=== PATIENT | male | born 1960 | race Caucasian/White ===

== ENCOUNTER → 2022-07-10 | Outpatient (CLI) | payer OTHER, SELFPAY ==
--- NOTE | 2022-07-10 10:25 | ECHOD_ITS ---
Reason For Study: ABN EKG Procedure This was a 2D Doppler, Color Flow transthoracic echocardiogram. Exam performed in department. Left Ventricle Normal LV size. Apical false tendon noted. Left ventricular systolic function is normal. The estimated ejection fraction is 65 %. No evidence for diastolic dysfunction. No regional wall motion abnormalities noted. Right Ventricle Normal RV size. Normal systolic function. Atria Normal left atrium. Normal right atrium. No doppler evidence for ASD. Mitral Valve There is no mitral annular calcification. Normal mitral valve. Trivial mitral valve insufficiency. Tricuspid Valve Normal tricuspid valve. Trivial tricuspid valve insufficiency. Right ventricular systolic pressure estimated to be 30 mmHg. Aortic Valve Trisinus/trileaflet aortic valve. Normal aortic valve. Pulmonic Valve The pulmonic valve is not well visualized. Great Vessels Normal sized aortic root. Pericardium/Pleural No pericardial effusion. MMode/2D Measurements & Calculations LVIDd: 4.5 cm IVSd: 0.98 cm Ao root diam: 3.6 cm LVIDs: 3.4 cm LVPWd: 1.0 cm FS: 24.8 % LAV(MOD-bp): 51.5 ml LVAd ap4: 28.1 cm2 SV(MOD-sp4): 46.1 ml LAV(MOD-bp) Indexed: 26.1 ml/m2 LVLd ap4: 8.2 cm LAV(MOD-sp2): 65.4 ml EDV(MOD-sp4): 79.6 ml LAV(MOD-sp4): 41.2 ml EDV(sp4-el): 81.0 ml LVAs ap4: 16.2 cm2 LVLs ap4: 6.9 cm ESV(MOD-sp4): 33.5 ml ESV(sp4-el): 32.2 ml EF(MOD-sp4): 57.9 % EF(sp4-el): 60.2 % SV(sp4-el): 48.8 ml LA A4 area: 16.7 cm2 LA dimension(2D): 3.8 cm RA A4 area: 20.0 cm2 Time Measurements MV dec time: 0.17 sec Doppler Measurements & Calculations MV E max zheng: 62.4 cm/sec Lat Peak E' Zheng: 15.0 cm/sec Med Peak E' Zheng: 8.4 cm/sec MV A max zheng: 60.0 cm/sec E/E' lat: 4.2 E/E' med: 7.4 MV E/A: 1.0 MV V2 max: 81.1 cm/sec Ao V2 max: 143.0 cm/sec MV max P.6 mmHg MV dec slope: 361.5 cm/sec2 Ao max P.2 mmHg MV V2 mean: 45.9 cm/sec Ao V2 mean: 99.2 cm/sec MV mean P.97 mmHg Ao mean P.5 mmHg MV V2 VTI: 35.5 cm Ao V2 VTI: 32.2 cm AV (velocity ratio): 0.68 LV V1 max: 95.6 cm/sec PA V2 max: 124.1 cm/sec TR max zheng: 261.5 cm/sec LV V1 max P.7 mmHg PA V2 mean: 72.8 cm/sec TR max P.3 mmHg LV V1 mean P.0 mmHg LV V1 mean: 66.6 cm/sec LV V1 VTI: 21.9 cm ECHO/Echo Complete Interpretation Summary Left ventricular systolic function is normal. The estimated ejection fraction is 65 %. Apical false tendon noted. Trivial mitral valve insufficiency. Trivial tricuspid valve insufficiency. Right ventricular systolic pressure estimated to be 30 mmHg. No evidence for diastolic dysfunction. Ordering Physician: KENYATTA RODRIGUEZ Referring Physician: NO PCP Performed By: Karis Carr RCS
--- NOTE | 2022-07-10 10:39 | EKG12_ITS ---
Test Reason : AFIB Blood Pressure : / mmHG Vent. Rate : 059 BPM Atrial Rate : 059 BPM P-R Int : 172 ms QRS Dur : 084 ms QT Int : 410 ms P-R-T Axes : 051 -08 005 degrees QTc Int : 405 ms Sinus bradycardia Otherwise normal ECG Confirmed by CLARKE WYATT, KAM ([id number]), videotape editor TUNDE CARRANZA ([id number]) on 07/11/2022 10:27:12 AM Referred By: KARLA Confirmed By:KAM MIR MD
[2022-07-10 12:29] LABS: Color, Urine Yellow (Yellow); Glucose, Dipstick Normal (Normal); Ketone-Dipstick Negative (Negative); Leukocyte Esterase-Dipstick Negative /ul (Negative); Nitrite-Dipstick Negative (Negative); Occult Blood-Urine 25 /ul (Negative); Protein-Dipstick Negative (Negative); Urine Bilirubin Dipstick Negative (Negative); Urine Clarity Clear (Clear); Urine Urobilinogen Normal (Normal)
[2022-07-10 12:41] LABS: ALB/GLOB Ratio 1.2 RATIO (0.9-2.4); AST(SGOT) 25 U/L (15-37); Alanine Aminotransfer ALT/SGPT 26 U/L (16-61); Albumin, Serum 3.9 g/dL (3.2-5.0); Alkaline Phosphatase 39 U/L (45-117); Amylase 48 U/L (25-115); Anion Gap 6 (5-15); BUN 23 mg/dL (7-18); BUN/Creat Ratio 17.2 RATIO (10-20); Calcium,Total 9.7 mg/dL (8.5-10.1); Chloride 106 mmol/L (98-107); Creatinine, Serum 1.34 mg/dL (0.70-1.30); EST Glomerular Filtration Rate 57 mL/min (>60); Est Glom Filt Rate - Afr Amer 69 mL/min (>60); Globulin 3.3 g/dL (2.2-4.2); Glucose 95 mg/dL (74-106); Lipase 102 U/L (73-393); Potassium 3.8 mmol/L (3.5-5.1); Protein, Total 7.2 g/dL (6.4-8.2); Sodium Level 140 mmol/L (136-145)
== END | disposition home or self-care (01) ==
DX: I48.91 Unspecified atrial fibrillation (principal); N28.81 Hypertrophy of kidney
CPT/HCPCS: 36415; 80053; 81002; 82150; 83690; 93005; 93306

== ENCOUNTER → 2023-07-22 | Outpatient (CLI) | payer OTHER, SELFPAY ==
[2023-07-22 09:00] LABS: Amylase 48 U/L (25-115); Lipase 24 U/L (13-75)
== END | disposition home or self-care (01) ==
PROVIDERS: Referring Provider Chiropractor; Visit Provider Chiropractor
DX: K85.90 Acute pancreatitis without necrosis or infection, unspecified (principal)
CPT/HCPCS: 36415; 82150; 83690